=== PATIENT | female | born 1930 | race Caucasian/White ===

== ENCOUNTER 2016-11-22 16:09 | Outpatient (CLI) | payer MEDICARE, OTHER | END 2016-11-22 16:10 | disposition home or self-care (01) | DX: R53.83 Other fatigue (principal); M81.0 Age-related osteoporosis without current pathological fracture ==

== ENCOUNTER 2017-02-10 06:32 | Outpatient (CLI) | payer MEDICARE, OTHER | END 2017-02-10 06:33 | disposition home or self-care (01) | DX: M54.89 Other dorsalgia (principal) ==

== ENCOUNTER 2017-02-18 14:15 | Outpatient (CLI) | payer MEDICARE, OTHER | END 2017-02-18 14:16 | disposition home or self-care (01) | DX: R35.0 Frequency of micturition (principal) ==

== ENCOUNTER 2017-04-15 13:14 | Outpatient (CLI) | payer MEDICARE, OTHER | END 2017-04-15 13:15 | disposition critical access hospital (66) | LOC: EMS 13:14 | PROVIDERS: ATTEND Surgery | DX: T43.291A Poisoning by other antidepressants, accidental (unintentional), initial encounter (principal) | CPT/HCPCS: A0425; A0427 ==

== ENCOUNTER 2017-04-15 13:32 | Observation (INO) | payer MEDICARE, OTHER ==
[2017-04-15] MEDS ORDERED: SODIUM CHLORIDE 0.9% 1,000 ML IV ONE (13:57)
--- NOTE | 2017-04-15 14:12 | ED Physician Documentation ---
PD HPI OVERDOSE - Stated complaint Stated Complaint: MEDICATION INGESTION - Chief complaint Chief Complaint: General - History obtained from History obtained from: Patient - History of Present Illness Timing - onset: How many hours ago (2) Subtance(s) ingested: Single (5 150mg tabs of wellbutrin XL) Associated symptoms: No: Cardiac arrest, Resp depression, Resp arrest, Unresponsive, Decreased responsiveness, Altered mental status, Agitated, Combative, Hallucinations, Chest pain, Abdominal pain, Palpitations, Dyspnea, Diaphoresis, NVD Contributing factors: Accidental. No: Depresssed, Suicidal, Alchoholic, IVDA Pain level max: 0 Pain level now: 0 Similar symptoms before: Has not had sx before Recently seen: Not recently seen Review of Systems Ten Systems: 10 systems reviewed and negative Constitutional: denies: Fever, Chills Nose: denies: Rhinorrhea / runny nose, Congestion Throat: denies: Sore throat Cardiac: denies: Chest pain / pressure Respiratory: denies: Cough GI: denies: Abdominal Pain, Nausea, Vomiting, Diarrhea Skin: denies: Rash Musculoskeletal: denies: Neck pain, Back pain Neurologic: denies: Focal weakness, Numbness, Headache PD PAST MEDICAL HISTORY - Past Medical History Cardiovascular: High cholesterol, Atrial fibrillation Respiratory: None Endocrine/Autoimmune: None GI: Diverticulitis : None Psych: Depression Musculoskeletal: Osteoporosis Derm: None - Past Surgical History Past Surgical History: Yes 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, 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 Cardiovascular: Vascular surgery HEENT: Cataracts - Present Medications Home Medications: Ambulatory Orders Medication Instructions Recorded Confirmed Aspirin [Aspir-Low] 81 mg PO QPM 02/18/16 04/15/17 Bupropion HCl [Bupropion Xl] 150 mg PO DAILY 04/15/17 04/15/17 Prednisone 50 mg PO DAILY 04/15/17 04/15/17 Zolpidem Tartrate [Ambien] 5 - 10 mg PO QPM PRN 04/15/17 04/15/17 - Allergies Allergies/Adverse Reactions: Allergies Allergy/AdvReac Type Severity Reaction Status Date / Time levofloxacin [From Levaquin] AdvReac Severe Nausea, Verified 04/15/17 14:56 Vomiting, and weakness lovastatin AdvReac Severe Insomnia Verified 04/15/17 14:56 ciprofloxacin [From Cipro] AdvReac Intermediate Muscle Verified 04/15/17 14:56 stiffness and pain ciprofloxacin HCl * AdvReac Intermediate Muscle Verified 04/15/17 14:56 [From Cipro] stiffness and pain [id number]-[id number]-Mzs Reductase AdvReac Intermediate Insomnia Verified 04/15/17 14:56 Inhibitor - Social History Does the pt smoke?: No Smoking Status: Never smoker Does the pt drink ETOH?: Yes Does the pt have substance abuse?: No - Immunizations Immunizations are current?: Yes - POLST Patient has POLST: Yes PD ED PE NORMAL - Vitals Vital signs reviewed: Yes - General General: Alert and oriented X 3, No acute distress, Well developed/nourished - HEENT HEENT: PERRL, Moist mucous membranes - Neck Neck: Supple, no meningeal sign - Cardiac Cardiac: RRR, Strong equal pulses - Respiratory Respiratory: No respiratory distress, Clear bilaterally - Abdomen Abdomen: Soft, Non tender, Non distended - Derm Derm: Warm and dry, Other (diffuse rash, being treated with prednisone by dermatology.) - Extremities Extremities: No deformity - Neuro Neuro: Alert and oriented X 3, slp 2-12 intact, No motor deficit, No sensory deficit, Normal speech - Psych Psych: Normal mood, Normal affect Results - Vitals Vitals: Vital Signs - 24 hr 04/15/17 04/15/17 13:34 14:43 Temperature 37.1 C Heart Rate 94 85 Respiratory 16 16 Rate Blood Pressure 182/74 H 171/70 H O2 Saturation 98 98 Oxygen O2 Source Room air - EKG (time done) 1416 Rate: Rate (enter#) (83) Rhythm: NSR, Other (PVC) [place]: Normal Intervals: Normal ID QRS: Normal Ischemia: Normal ST segments - Labs Labs: Laboratory Tests 04/15/17 04/15/17 04/15/17 13:57 14:20 14:20 WBC 5.8 RBC 4.32 Hgb 14.2 Hct 42.3 MCV 97.9 MCH 32.9 H MCHC 33.6 RDW 13.3 Plt Count 216 MPV 8.2 Neut # 4.8 Lymph # 0.7 L [place] # 0.2 Eos # 0.0 Baso # 0.0 Absolute Nucleated RBC 0.00 Nucleated RBCs 0.0 Sodium 136 Potassium 4.4 Chloride 101 Carbon Dioxide 25 Anion Gap 10.0 BUN 25 H Creatinine 0.9 Estimated GFR (MDRD) 60 L Glucose 129 H Calcium 9.5 Total Bilirubin 0.6 AST 23 ALT 18 Alkaline Phosphatase 48 Total Protein 6.9 Albumin 3.8 Globulin 3.1 Albumin/Globulin Ratio 1.2 Lipase 29 Salicylates < 6.0 Urine Opiates Screen NEGATIVE Ur Oxycodone Screen NEGATIVE Urine Methadone Screen NEGATIVE Ur Propoxyphene Screen NEGATIVE Acetaminophen < 10 L Ur Barbiturates Screen NEGATIVE Ur Tricyclics Screen NEGATIVE Ur Phencyclidine Scrn NEGATIVE Ur Amphetamine Screen NEGATIVE U Methamphetamines Scrn NEGATIVE U Benzodiazepines Scrn NEGATIVE Urine Cocaine Screen NEGATIVE U Cannabinoids Screen NEGATIVE Ethyl Alcohol < 5.0 PD MEDICAL DECISION MAKING - ED course Complexity details: reviewed results, re-evaluated patient, considered differential, d/w patient, d/w family, d/w mgmt consultant ED course: Discussed with poison control and recommends observation in the hospital for 18- 24 hours. Monitoring of cardiac, electrolytes and neuro status. D/w Dr. Kirkland, hospitalist who accepts. This document was made in part using voice recognition software. While efforts are made to proofread this document, sound alike and grammatical errors may occur. Departure - Departure Disposition: ED Place in Observation Clinical Impression: Accidental overdose Qualifiers: Encounter type: initial encounter Qualified Code(s): T50.901A - Poisoning by unspecified drugs, medicaments and biological substances, accidental ( unintentional), initial encounter Condition: Good Discharge Date/Time: 04/15/17 16:11
[2017-04-15 14:30] LABS: BASOPHILS % (AUTO) 0.4 %; EOSINOPHILS % (AUTO) 0.7 %; HCT - HEMATOCRIT 42.3 % (37.0-47.0); HGB - HEMOGLOBIN 14.2 g/dL (12.0-16.0); LYMPHOCYTES # (AUTO) 0.7 10^3/uL (1.5-3.5); LYMPHOCYTES % (AUTO) 12.3 %; MEAN CORPUSCULAR HEMOGLOBIN 32.9 pg (27.0-31.0); MEAN CORPUSCULAR HGB CONC 33.6 g/dL (32.0-36.0); MEAN CORPUSCULAR VOLUME 97.9 fL (81.0-99.0); MEAN PLATELET VOLUME 8.2 fL (7.9-10.8); MONOCYTES # (AUTO) 0.2 10^3/uL (0.0-1.0); MONOCYTES % (AUTO) 3.3 %; NEUTROPHILS # (AUTO) 4.8 10^3/uL (1.5-6.6); NEUTROPHILS % (AUTO) 83.3 %; RED BLOOD COUNT 4.32 10^6/uL (4.20-5.40); RED CELL DISTRIBUTION WIDTH 13.3 % (12.0-15.0); UNCORRECTED WHITE BLOOD COUNT 5.8 x10^3/uL; WHITE BLOOD COUNT 5.8 x10^3/uL (4.8-10.8)
[2017-04-15 14:47] LABS: ALBUMIN/GLOBULIN RATIO 1.2 (1.0-2.2); BILIRUBIN,TOTAL 0.6 mg/dL (0.2-1.0); BUN - BLOOD UREA NITROGEN 25 mg/dL (6-20); CALCIUM 9.5 mg/dL (8.5-10.3); CARBON DIOXIDE - CO2 25 mmol/L (21-32); CHLORIDE 101 mmol/L (101-111); CREATININE 0.9 mg/dL (0.4-1.0); GFR - MDRD 60 (>89); GLUCOSE 129 mg/dL (70-100); LIPASE 29 U/L (22-51); POTASSIUM 4.4 mmol/L (3.5-5.0); SALICYLATE < 6.0 mg/dL; SODIUM 136 mmol/L (135-145); TOTAL PROTEIN 6.9 g/dL (6.7-8.2)
[2017-04-15 14:48] LABS: ACETAMINOPHEN < 10 ug/mL (10-30)
[2017-04-15] MEDS ORDERED: HYDROcod/ACETAM 5/325 MG TABLET PO PRN (14:50)
[2017-04-15] MEDS ORDERED: SODIUM CHLORIDE FLUSH 0.9% 10 ML SYRINGE IVP PRN (14:50)
[2017-04-15] MEDS ORDERED: ACETAMINOPHEN 325 MG TABLET PO PRN (14:50)
[2017-04-15] MEDS: SODIUM CHLORIDE 0.9% 1,000 ML IV SCH (16:59)
--- NOTE | 2017-04-15 18:12 | HISTORY & PHYSICAL EXAMINATION ---
DATE OF ADMISSION: 04/15/2017 PRIMARY CARE PHYSICIAN: Delmy Marques P.A.-C CHIEF COMPLAINT: Inadvertent overdose. IDENTIFYING INFORMATION: The patient is the primary source of history. She appears cogent, consistent, and thorough. The patient's history is supplemented by the handoff from the Emergency Department Physician, Donell Rivas M.D. There was also personal review of the past medical records and the data collected during this visit. The patient's examination was also used in the evaluation and preparation of this document. HISTORY OF PRESENT ILLNESS: The patient went to the tip bander yesterday and was instructed to take five 10 mg prednisone daily for the rash. The patient started those pills today. However, she chose the Wellbutrin-XL 150 mg instead of the prednisone and did not realize her mistake until after she ingested the pills. The patient is asymptomatic. However, she got concerned and called Poison Control, who told her to call 911, come to the hospital, and be evaluated in the emergency department. The patient says she feels perfectly fine. REVIEW OF SYSTEMS: A complete review of systems is negative as queried. Specifically, the patient has had no nausea, vomiting, or diarrhea. She has had no chest pain, no hallucinations, and no cardiac or pulmonary symptoms as well. PAST MEDICAL HISTORY: The patient's past medical history is remarkable for high cholesterol, atrial fibrillation, diverticulitis, depression, and osteoporosis. She has had colon and also breast cancer. PAST SURGICAL HISTORY: Past surgeries are hysterectomy, mastectomy, vascular surgery, and cataracts. ALLERGIES: NONE KNOWN. MEDICATIONS Her medications are: 1. Aspirin 81 mg a day. 2. Bupropion XL 150 mg a day. 3. Prednisone 50 mg a day. PERSONAL AND SOCIAL HISTORY: She was born and raised in [place] and then moved to [place]. She says, "I was an illegal alien for [employer]." She came to [facility] in [address]. She had to go back to [place] for a day so that she could come in and get her green card. 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 The patient has a son and two daughters. None live in the area. The patient's is disabled. The patient has never been a smoker. She drinks alcohol occasionally. No other substance abuse history. FAMILY HISTORY: The patient's family history is negative for diabetes. Positive for cardiac disease. Father at 71 from a myocardial infarction. There is also cancer in the family. She does not know the type, except her own. PHYSICAL EXAMINATION GENERAL APPEARANCE: On the patient's examination, she appears her stated age, well developed and well nourished. No acute distress. VITAL SIGNS: The patient's vital signs are 37.1, 94, 16, 182/74, and O2 saturation 98% on room air. EYES: Extraocular movements are within normal limits. PERRL. Nonicteric. MOUTH AND THROAT: Moist mucous membranes. No pathology noted in the mouth or pharynx. NECK: No lymphadenopathy. No thyromegaly. No JVD. No bruits. CHEST WALL: Nontender and symmetric, except that she has had mastectomy. There is no breast exam done. HEART: The patient's heart is an irregularly irregular rhythm. No murmur, rubs , or clicks heard. LUNGS: Clear. Good air movement bilaterally. No increased respiratory work. ABDOMEN: Soft and nontender. Normal bowel sounds. No hepatosplenomegaly. EXTREMITIES: With 1+ pulses distally. VASCULAR EXAM: No cyanosis. Normal capillary refill. NEUROLOGICAL: Cranial nerves are intact. Motor intact. Sensory intact. Cognition intact. The patient's gait is not tested. SKIN: She has lesions which appear to be papular with a red base on the arms, legs, trunk, and back. LABORATORY DATA: The patient has a white count of 5.8, 14 and 42 hemoglobin and hematocrit, and platelets 216. Sodium 136, potassium 4.4, chloride 101, CO2 was 25, BUN was 25, creatinine was 0.9, and the glucose was 129. Normal liver enzymes, and albumin was 3.8. Salicylate was less than 6. Acetaminophen was less than 10. Ethyl alcohol was less than 5. The patient's EKG showed a first degree heart block without Q-waves or ST-T wave changes that are significant. The patient also has ventricular premature complexes and borderline left axis deviation. She has a wide P-wave in the inferior leads. SUMMARY: This is an 87-year-old woman who took and inadvertent overdose of Wellbutrin and needs to be monitored for life-threatening sequela of this ingestion, namely respiratory depression, cardiac arrest, hallucinations, and electrolyte disturbances. IMPRESSION 1. Overdose on Wellbutrin. 2. Atrial fibrillation: rate controlled , not on Anticoagulation. 3. Depression. 4. Hypercholesterolemia. DISCUSSION/DECISION MAKING 1. She will be given ample IV fluids and monitored. Repeat laboratory. 2. Atrial fibrillation, rate controlled: No further treatment at this time. 3. Depression: Wellbutrin will be held due to the toxicity for 3 to 5 days. 4. Hypercholesterolemia: Will not be treated at this time as she is on no outpatient therapy. HOSPITAL ISSUES 1. She is a NO CODE. 2. Venous thromboembolism prophylaxis will be Lovenox. 3. Diet will be a regular diet. 4. Activity will be up ad letha. 5. Tubes and lines: Will be just her peripheral IV at this time. 6. Hospital status: Observation. It is expected the patient will clear the toxicity in less than 48 hours and only spend one night in the hospital. 7. Expected length of stay: One night. 8. Disposition: Expected to be to home. JOB #: [id number] EXT JOB #:[id number] JONAS
[2017-04-15] MEDS ORDERED: ASPIRIN EC 81 MG TABLET PO SCH (21:00)
[2017-04-15] MEDS: SODIUM CHLORIDE FLUSH 0.9% 10 ML SYRINGE IVP SCH (21:40)
[2017-04-16] MEDS: SODIUM CHLORIDE 0.9% 1,000 ML IV SCH (03:12)
[2017-04-16] MEDS: SODIUM CHLORIDE FLUSH 0.9% 10 ML SYRINGE IVP SCH (04:49)
[2017-04-16 05:58] LABS: BASOPHILS % (AUTO) 0.5 %; EOSINOPHILS # (AUTO) 0.2 10^3/uL (0.0-0.7); HCT - HEMATOCRIT 40.1 % (37.0-47.0); HGB - HEMOGLOBIN 13.4 g/dL (12.0-16.0); LYMPHOCYTES # (AUTO) 1.6 10^3/uL (1.5-3.5); LYMPHOCYTES % (AUTO) 20.8 %; MEAN CORPUSCULAR HEMOGLOBIN 33.1 pg (27.0-31.0); MEAN CORPUSCULAR HGB CONC 33.3 g/dL (32.0-36.0); MEAN CORPUSCULAR VOLUME 99.4 fL (81.0-99.0); MEAN PLATELET VOLUME 8.5 fL (7.9-10.8); MONOCYTES % (AUTO) 13.2 %; NEUTROPHILS # (AUTO) 4.9 10^3/uL (1.5-6.6); NEUTROPHILS % (AUTO) 63.5 %; NUCLEATED RED BLOOD CELLS AUTO 0.1 /100WBC; RED BLOOD COUNT 4.04 10^6/uL (4.20-5.40); RED CELL DISTRIBUTION WIDTH 13.4 % (12.0-15.0); UNCORRECTED WHITE BLOOD COUNT 7.7 x10^3/uL; WHITE BLOOD COUNT 7.7 x10^3/uL (4.8-10.8)
[2017-04-16 06:09] LABS: ALBUMIN/GLOBULIN RATIO 1.2 (1.0-2.2); BILIRUBIN,TOTAL 0.6 mg/dL (0.2-1.0); CALCIUM 9.2 mg/dL (8.5-10.3); CREATININE 0.8 mg/dL (0.4-1.0); POTASSIUM 3.8 mmol/L (3.5-5.0); TOTAL PROTEIN 6.1 g/dL (6.7-8.2)
--- NOTE | 2017-04-16 07:28 | Discharge Plan ---
Discharge Plan Disposition: 01 Home, Self Care Condition: Good Diet: Regular Activity Restrictions: Activity as Tolerated Shower Restrictions: No Driving Restrictions: No Weight Bearing: Full Weight Additional Instructions or Follow Up instructions: Do not restart your Wellbutrin until Tuesday am. Follow up with your PCP in the next 1-2 weeks. Thank you, Dr. Kirkland No Smoking: If you smoke, Please STOP! Call for help. Follow-up with: Delmy Marques PA-C [Primary Care Provider] - 2 Weeks
[2017-04-16 07:56] VITALS: BP 129/67
[2017-04-16] MEDS ORDERED: predniSONE 20 MG TABLET PO SCH (08:00)
[2017-04-16] MEDS ORDERED: ENOXAPARIN 40 MG/0.4 ML SYRINGE SUBQ SCH (09:00)
[2017-04-16] MEDS ORDERED: POLYETHYLENE GLYCOL 3350 17 GM PACKET PO SCH (09:00)
--- NOTE | 2017-04-18 07:10 | DISCHARGE SUMMARY ---
DATE OF ADMISSION: 04/15/2017 DATE OF DISCHARGE: 04/16/2017 PRIMARY CARE PHYSICIAN: Delmy Marques PA-C ADMISSION DIAGNOSES 1. Overdose on Wellbutrin, inadvertent. 2. Atrial fibrillation, no anticoagulation. 3. Depression. 4. Hypercholesterolemia. DISCHARGE DIAGNOSES 1. Overdose on Wellbutrin without any sequelae. 2. Atrial fibrillation, rate controlled without anticoagulation. 3. Depression. 4. Hypercholesterolemia without medication. CONSULTATIONS: None. SPECIAL PROCEDURES: None. HOSPITAL COURSE AND MANAGEMENT: The initial presentation, hospital emergency evaluation, and hospital list plan are well described in the History and Physical, see copy of same. SUMMARY: This is an 87-year-old woman who took her an inadvertent overdose of Wellbutrin and needs to be monitored for life-threatening sequelae of this ingestion. This is specifically respiratory depre ssion, cardiac arrest, hallucinations, electrolyte disturbances. The patient had no significant adverse or detrimental consequences. The patient was monitored overnig ht without any cardiac disturbances. The patient's blood pressure was elevated initially, it was in a cceptable range in the morning before discharge at 148/71. The patient's a.m. labs were normal, to be noted subsequently. PHYSICAL EXAMINATION GENERAL: Elderly female in no acute distress. Well-developed, well-nourished. VITAL SIGNS: 36.9, 85, 148/71, 16, 97% room air saturation. EYES: EOM within normal limits. PERRL, nonicteric. MOUTH AND THROAT: Moist mucous membranes. No other pathology. NECK: Supple. Nontender. No lymphadenopathy. No thyromegaly. No JVD, no bruits. CHEST WALL: Nontender. Asymmetry secondary to right mastectomy. HEART: Irregular rhythm, a systolic murmur left sternal border noted. LUNGS: Clear, good air movement. ABDOMEN: Soft, nontender, normal bowel sounds. No hepatosplenomegaly. VASCULAR: She has some palpable pulses posterior tibial bilateral. No cyanosis. Normal capillary refi ll. NEUROLOGIC: Cranial nerves intact as tested. Motor normal. Sensory normal. SKIN: She has a diffuse dermatitis which has been diagnosed as allergic dermatitis and she is on pred nisone. LABORATORY DATA: She has a white count of 7.7, 13 and 40 hemoglobin and hematocrit, platelets are 214 . Sodium 143, potassium 3.8, chloride 110, CO2 of 24, BUN 22, creatinine 0.8, glucose 115, calcium 9. 2. Albumin 3.3. DISCHARGE DISPOSITION: The patient is discharged home on her usual medications. DISCHARGE MEDICATIONS 1. Aspirin 81 mg a day. 2. Zolpidem 5-10 mg at bedtime. 3. Bupropion 150 mg daily, which she is not to restart until Tuesday given the overdose residual. 4. Prednisone 50 mg p.o. daily in a taper as directed by her child care sitter. FOLLOWUP: The patient is to follow up with Delmy Marques in the next 1-2 weeks or sooner if needed. TIME SPENT: Less than 30 minutes and the patient is examined on the day of discharge. JOB #: [id number] EXT JOB #:[id number]
== END 2017-04-16 09:26 | disposition home or self-care (01) ==
LOC: EDUNIT# → ED 13:32 → MS 14:50
PROVIDERS: ADMIT Internal Medicine; ATTEND Internal Medicine
DX: T43.291A Poisoning by other antidepressants, accidental (unintentional), initial encounter (principal); R03.0 Elevated blood-pressure reading, without diagnosis of hypertension; I48.91 Unspecified atrial fibrillation; F32.9 Major depressive disorder, single episode, unspecified; E78.00 Pure hypercholesterolemia, unspecified; L23.9 Allergic contact dermatitis, unspecified cause; Z79.82 Long term (current) use of aspirin; Z85.3 Personal history of malignant neoplasm of breast; Z85.038 Personal history of other malignant neoplasm of large intestine; Z66 Do not resuscitate
CPT/HCPCS: 36415; 80053; 80306; 80307; 83690; 85025; 93005; 96360; 96361; 99284; 99285; A9270; G0378; G0480; 80320; 80329

== ENCOUNTER 2017-06-28 08:17 | Outpatient (CLI) | payer MEDICARE, OTHER ==
[2017-06-28 21:07] LABS: BILIRUBIN,URINE NEGATIVE (NEGATIVE); PH,URINE 6.5 PH (5.0-7.5)
== END 2017-06-28 08:18 | disposition home or self-care (01) ==
LOC: LAB.WCP 08:17
PROVIDERS: ATTEND Physician Assistant Medical
DX: R30.0 Dysuria (principal)
CPT/HCPCS: 81001; 87086

== ENCOUNTER 2017-09-20 10:45 | Outpatient (CLI) | payer MEDICARE, OTHER | END 2017-09-20 10:46 | LOC: LAB.WCP 10:45 | PROVIDERS: ATTEND Physician Assistant Medical | DX: R30.0 Dysuria (principal) | CPT/HCPCS: 87086 ==

== ENCOUNTER 2017-09-26 08:00 | Outpatient (CLI) | payer MEDICARE, OTHER | END 2017-09-26 23:59 | disposition home or self-care (01) | LOC: LAB.R 08:00 | PROVIDERS: ATTEND Physician Assistant Medical | DX: R30.9 Painful micturition, unspecified (principal) | CPT/HCPCS: 87086 ==

== ENCOUNTER 2017-11-09 08:00 | Outpatient (CLI) | payer MEDICARE, OTHER | END 2017-11-09 23:59 | disposition home or self-care (01) | LOC: LAB.R 08:00 | PROVIDERS: ATTEND Physician Assistant Medical | DX: N39.0 Urinary tract infection, site not specified (principal) | CPT/HCPCS: 87086 ==

== ENCOUNTER 2017-11-14 16:30 | Outpatient (CLI) | payer MEDICARE, OTHER | END 2017-11-14 16:31 | disposition home or self-care (01) | LOC: LAB.R 16:30 | PROVIDERS: ATTEND Physician Assistant Medical | DX: N39.0 Urinary tract infection, site not specified (principal) | CPT/HCPCS: 87086 ==

== ENCOUNTER 2018-05-19 08:00 | Outpatient (CLI) | payer MEDICARE, OTHER ==
[2018-05-19 13:00] LABS: BASOPHILS # (AUTO) 0.1 10^3/uL (0.0-0.1); BASOPHILS % (AUTO) 1.3 %; EOSINOPHILS # (AUTO) 0.5 10^3/uL (0.0-0.7); EOSINOPHILS % (AUTO) 7.8 %; HGB - HEMOGLOBIN 13.8 g/dL (12.0-16.0); LYMPHOCYTES # (AUTO) 2.2 10^3/uL (1.5-3.5); LYMPHOCYTES % (AUTO) 32.7 %; MEAN CORPUSCULAR HEMOGLOBIN 33.7 pg (27.0-31.0); MEAN CORPUSCULAR HGB CONC 33.8 g/dL (32.0-36.0); MEAN CORPUSCULAR VOLUME 99.7 fL (81.0-99.0); MEAN PLATELET VOLUME 8.7 fL (7.9-10.8); MONOCYTES # (AUTO) 0.7 10^3/uL (0.0-1.0); MONOCYTES % (AUTO) 10.2 %; NEUTROPHILS # (AUTO) 3.2 10^3/uL (1.5-6.6); PLT - PLATELET COUNT 277 10^3/uL (130-450); RED BLOOD COUNT 4.11 10^6/uL (4.20-5.40); RED CELL DISTRIBUTION WIDTH 14.1 % (12.0-15.0); WHITE BLOOD COUNT 6.7 x10^3/uL (4.8-10.8)
[2018-05-19 13:22] LABS: THYROID STIMULATING HORMONE 7.55 uIU/mL (0.34-5.60)
[2018-05-19 13:23] LABS: ALBUMIN 3.3 g/dL (3.2-5.5); ALBUMIN/GLOBULIN RATIO 1.1 (1.0-2.2); ALKALINE PHOSPHATASE 41 IU/L (42-121); ALT ALANINE AMINOTRANSFERASE 14 IU/L (10-60); AST ASPARTATE AMINOTRANSFERASE 19 IU/L (10-42); BILIRUBIN,TOTAL 0.7 mg/dL (0.2-1.0); BUN - BLOOD UREA NITROGEN 21 mg/dL (6-20); CALCIUM 9.2 mg/dL (8.5-10.3); CARBON DIOXIDE - CO2 27 mmol/L (21-32); CHLORIDE 106 mmol/L (101-111); CHOL/HDL RATIO 3.4 (<4.4); CHOLESTEROL 220 mg/dL; CREATININE 0.8 mg/dL (0.4-1.0); GFR - MDRD 68 (>89); GLUCOSE 103 mg/dL (70-100); HDL CHOLESTEROL 65 mg/dL; LDL CHOLESTEROL,CALCULATED 143 mg/dL; LDL/HDL RATIO 2.2 (<4.4); SODIUM 140 mmol/L (135-145); TOTAL PROTEIN 6.4 g/dL (6.7-8.2); VLDL CHOLESTEROL 12 mg/dL
[2018-05-19 14:24] LABS: RBC MORPHOLOGY (MULTIPLE) 2+ ANISOCYTOSIS (NORMAL)
[2018-05-19 15:04] LABS: FREE T4 (FREE THYROXINE) 0.96 ng/dL (0.58-1.64)
== END 2018-05-19 08:01 | disposition home or self-care (01) ==
LOC: LAB.WCP 08:00
PROVIDERS: ATTEND Family Medicine
DX: I48.91 Unspecified atrial fibrillation (principal); I10 Essential (primary) hypertension; E78.5 Hyperlipidemia, unspecified
CPT/HCPCS: 36415; 80053; 80061; 83721; 84439; 84443; 85025

== ENCOUNTER 2018-06-16 12:11 | Outpatient (CLI) | payer MEDICARE, OTHER ==
--- NOTE | 2018-06-17 01:26 | CARDIAC PROCEDURE NOTE ---
DATE OF SERVICE: 06/16/2018 Physician: Micki Clark MD INDICATION FOR STRESS TEST: Dyspnea on exertion. TYPE OF TEST: Exercise treadmill test. RESTING EKG: Normal sinus rhythm with occasional PACs, left atrial enlargement , poor R-wave progression. Resting heart rate 88, peak heart rate 112 (83.5% predicted maximal heart rate for age). Resting blood pressure 138/70, peak blood pressure 195/55. SUMMARY: The patient underwent a Modified Uday, 3-min stage, treadmill protocol stress test. The patient exercised for 5 minutes, 38 seconds. She achieved a peak heart rate of 112 (83.5% PMHR), 3.5 METS. The patient developed moderate shortness of breath and fatigue and "sweating." Shortness of breath resolved within 1-2 minutes of recovery. The patient had no chest pain. EKG showed rare PACs with exercise and new PVCs with exercise EKG AT PEAK: no ischemic ST segment changes. IMPRESSION 1. Fair exercise tolerance. 2. Normal HR and BP response to exercise. 3. Borderline adequate stress by criteria, she did not achieve greater than 7 METS, she did not achieve 85% predicated heart rate for age. 4. No EKG changes for ischemia at this suboptimal peak heart rate. 5. Consider rechecking with a pharmaceutical, nonwalking, nuclear stress test. CC: ORDERING PROVIDER: Delmy Marques PA-C. TD: 06/16/2018 17:11 MTDD
== END 2018-06-16 12:12 | disposition home or self-care (01) ==
LOC: DI 12:11
PROVIDERS: ATTEND Physician Assistant Medical
DX: R06.09 Other forms of dyspnea (principal)
CPT/HCPCS: 93017

== ENCOUNTER 2018-06-20 14:05 | Outpatient (CLI) | payer MEDICARE, OTHER | END 2018-06-20 14:06 | LOC: LAB.WCP 14:05 | PROVIDERS: ATTEND Physician Assistant Medical | DX: E03.9 Hypothyroidism, unspecified (principal) | CPT/HCPCS: 36415; 84443 ==

== ENCOUNTER 2018-08-18 12:48 | Outpatient (CLI) | payer MEDICARE, OTHER ==
--- NOTE | 2018-08-19 10:11 | Ultrasound Report ---
Reason: DIZZINESS Procedure Date: 08/18/2018 Accession Number: [id number] / [id number] Procedure: US - Carotid Doppler Complete CPT Code: FULL RESULT: EXAM: BILATERAL CAROTID AND VERTEBRAL ARTERY DUPLEX DOPPLER ULTRASOUND: EXAM DATE: 08/18/2018 02:14 PM CLINICAL HISTORY: Dizziness. COMPARISON: None. TECHNIQUE: Grayscale imaging, color Doppler, and duplex spectral Doppler were used to evaluate the carotid and vertebral arteries bilaterally. Static images were obtained. FINDINGS: No significant plaque is identified in the right common or internal carotid arteries. There is a short segment of moderate calcified plaque at the left carotid bulb. Normal antegrade flow is present in bilateral vertebral arteries. VELOCITIES (cm/sec): Right CCA mid: PSV 116.3 cm/sec CCA dist: PSV 92.5 cm/sec ICA prox: PSV 75.6 cm/sec, EDV 16.7 cm/sec ICA mid: PSV 92.8 cm/sec, EDV 27.2 cm/sec ICA dist: PSV 88.4 cm/sec, EDV 23.4 cm/sec ECA: PSV 108.0 cm/sec Vert: PSV 23.4 cm/sec ICA/CCA: 0.80 Left CCA mid: PSV 57.8 cm/sec CCA dist: PSV 92.1 cm/sec ICA prox: PSV 106.2 cm/sec, EDV 11.5 cm/sec ICA mid: PSV 116.0 cm/sec, EDV 26.6 cm/sec ICA dist: PSV 109.2 cm/sec, EDV 26.6 cm/sec ECA: PSV 80.1 cm/sec Vert: PSV 51.0 cm/sec ICA/CCA: 1.26 ICA diameter stenosis: Right: <50% by velocity and <70% by NASCET criteria. Left: <50% by velocity and <70% by NASCET criteria. IMPRESSION: 1. No significant right carotid artery plaquing. There is a short segment of moderate calcified plaque at the left carotid bulb. 2. In the right carotid artery there are no elevated carotid artery velocities to suggest hemodynamically significant stenosis. 3. In the left carotid artery there are no elevated carotid artery velocities to suggest hemodynamically significant stenosis. 4. Normal antegrade flow is present in bilateral vertebral arteries. General Recommendations: Stenosis =50% ICA - Follow-up ultrasound 6-12 months Stenosis <50% ICA - High Risk Patient with plaque - Follow-up ultrasound 1-2 years Normal Study but High Risk Patient - Follow-up ultrasound 3-5 years Management recommendations and diagnostic criteria are based on current IAC endorsed standards in Carotid Artery Stenosis: Grayscale and Doppler Ultrasound Diagnosis. Validated velocity measurements with angiographic measurements and velocity criteria are extrapolated from diameter data as defined by the Society of Radiologists in Ultrasound Consensus Conference Radiology 2003; 229;340-346. RADIA
== END 2018-08-18 12:49 | disposition home or self-care (01) ==
LOC: DI 12:48
PROVIDERS: ATTEND Physician Assistant Medical
DX: I65.22 Occlusion and stenosis of left carotid artery (principal); R42 Dizziness and giddiness
CPT/HCPCS: 93880

== ENCOUNTER 2018-09-27 08:00 | Outpatient (CLI) | payer MEDICARE, OTHER ==
[2018-09-27 18:56] LABS: BASOPHILS # (AUTO) 0.1 10^3/uL (0.0-0.1); EOSINOPHILS # (AUTO) 0.1 10^3/uL (0.0-0.7); EOSINOPHILS % (AUTO) 1.6 %; HGB - HEMOGLOBIN 14.8 g/dL (12.0-16.0); LYMPHOCYTES # (AUTO) 1.6 10^3/uL (1.5-3.5); LYMPHOCYTES % (AUTO) 23.1 %; MEAN CORPUSCULAR HEMOGLOBIN 33.3 pg (27.0-31.0); MEAN CORPUSCULAR HGB CONC 32.8 g/dL (32.0-36.0); MEAN CORPUSCULAR VOLUME 101.6 fL (81.0-99.0); MEAN PLATELET VOLUME 8.4 fL (7.9-10.8); MONOCYTES # (AUTO) 0.6 10^3/uL (0.0-1.0); NEUTROPHILS # (AUTO) 4.6 10^3/uL (1.5-6.6); NEUTROPHILS % (AUTO) 65.3 %; PLT - PLATELET COUNT 252 10^3/uL (130-450); RED BLOOD COUNT 4.45 10^6/uL (4.20-5.40); RED CELL DISTRIBUTION WIDTH 13.9 % (12.0-15.0)
[2018-09-27 19:01] LABS: CALCIUM 9.9 mg/dL (8.5-10.3); CREATININE 0.8 mg/dL (0.4-1.0)
== END 2018-09-27 23:59 | disposition home or self-care (01) ==
LOC: LAB.WCP 08:00
PROVIDERS: ATTEND Physician Assistant Medical
DX: R42 Dizziness and giddiness (principal)
CPT/HCPCS: 36415; 80048; 84443; 85025

== ENCOUNTER 2018-10-10 08:00 | Outpatient (CLI) | payer MEDICARE, OTHER ==
[2018-10-10 19:06] LABS: BASOPHILS # (AUTO) 0.1 10^3/uL (0.0-0.1); BASOPHILS % (AUTO) 1.4 %; EOSINOPHILS # (AUTO) 0.2 10^3/uL (0.0-0.7); EOSINOPHILS % (AUTO) 2.1 %; HGB - HEMOGLOBIN 14.7 g/dL (12.0-16.0); LYMPHOCYTES # (AUTO) 1.5 10^3/uL (1.5-3.5); LYMPHOCYTES % (AUTO) 20.1 %; MEAN CORPUSCULAR HEMOGLOBIN 33.3 pg (27.0-31.0); MEAN CORPUSCULAR HGB CONC 33.2 g/dL (32.0-36.0); MEAN CORPUSCULAR VOLUME 100.3 fL (81.0-99.0); MEAN PLATELET VOLUME 8.4 fL (7.9-10.8); MONOCYTES # (AUTO) 0.9 10^3/uL (0.0-1.0); MONOCYTES % (AUTO) 11.3 %; NEUTROPHILS # (AUTO) 4.9 10^3/uL (1.5-6.6); NEUTROPHILS % (AUTO) 65.1 %; PLT - PLATELET COUNT 317 10^3/uL (130-450); RED BLOOD COUNT 4.43 10^6/uL (4.20-5.40); RED CELL DISTRIBUTION WIDTH 13.8 % (12.0-15.0); WHITE BLOOD COUNT 7.6 x10^3/uL (4.8-10.8)
[2018-10-10 19:20] LABS: ALBUMIN/GLOBULIN RATIO 1.3 (1.0-2.2); BILIRUBIN,TOTAL 0.8 mg/dL (0.2-1.0); CALCIUM 9.4 mg/dL (8.5-10.3); CREATININE 0.8 mg/dL (0.4-1.0); TOTAL PROTEIN 7.2 g/dL (6.7-8.2)
== END 2018-10-10 23:59 | disposition home or self-care (01) ==
LOC: LAB.WCP 08:00
PROVIDERS: ATTEND Physician Assistant Medical
DX: R10.32 Left lower quadrant pain (principal)
CPT/HCPCS: 36415; 80053; 83690; 85025

== ENCOUNTER 2018-10-19 11:32 | Outpatient (CLI) | payer MEDICARE, OTHER ==
[2018-10-19 12:05] LABS: BASOPHILS # (AUTO) 0.1 10^3/uL (0.0-0.1); BASOPHILS % (AUTO) 0.9 %; EOSINOPHILS # (AUTO) 0.2 10^3/uL (0.0-0.7); EOSINOPHILS % (AUTO) 2.2 %; HGB - HEMOGLOBIN 14.8 g/dL (12.0-16.0); LYMPHOCYTES # (AUTO) 1.7 10^3/uL (1.5-3.5); LYMPHOCYTES % (AUTO) 20.2 %; MEAN CORPUSCULAR HGB CONC 34.3 g/dL (32.0-36.0); MEAN PLATELET VOLUME 7.8 fL (7.9-10.8); MONOCYTES # (AUTO) 0.8 10^3/uL (0.0-1.0); MONOCYTES % (AUTO) 9.7 %; NEUTROPHILS # (AUTO) 5.5 10^3/uL (1.5-6.6); PLT - PLATELET COUNT 307 10^3/uL (130-450); RED BLOOD COUNT 4.37 10^6/uL (4.20-5.40); RED CELL DISTRIBUTION WIDTH 13.9 % (12.0-15.0); WHITE BLOOD COUNT 8.2 x10^3/uL (4.8-10.8)
[2018-10-19] MEDS ORDERED: IOVERSOL 320 50 ML VIAL ONE (12:13)
[2018-10-19] MEDS ORDERED: IOVERSOL 320 100 ML VIAL IVP ONE ×2 (12:14→13:57)
[2018-10-19 12:22] LABS: ALBUMIN 4.1 g/dL (3.2-5.5); ALBUMIN/GLOBULIN RATIO 1.4 (1.0-2.2); BILIRUBIN,TOTAL 0.8 mg/dL (0.2-1.0); CALCIUM 9.6 mg/dL (8.5-10.3)
[2018-10-19] MEDS ORDERED: IOVERSOL 320 50 ML VIAL PO ONE (13:53)
--- NOTE | 2018-10-19 14:33 | CT Report ---
Reason: ABDOMINAL PAIN, LEFT LOWER QUADRANT Procedure Date: 10/19/2018 Accession Number: [id number] / [id number] Procedure: CT - Abdomen/Pelvis W/ CPT Code: FULL RESULT: EXAM: CT ABDOMEN AND PELVIS EXAM DATE: 10/19/2018 01:43 PM. CLINICAL HISTORY: Abdominal pain, left lower quadrant. COMPARISONS: Chest 2 view PA and lateral 05/23/2018 1:35 PM. TECHNIQUE: Routine helical CT imaging was performed through the abdomen and pelvis. IV contrast: Optiray-320 100 mL. Enteric contrast: Yes. Reconstructions: Coronal and sagittal. In accordance with CT protocol optimization, one or more of the following dose reduction techniques were utilized for this exam: automated exposure control, adjustment of mA and/or KV based on patient size, or use of iterative reconstructive technique. FINDINGS: Lung Bases: Unremarkable. Liver: Normal. No masses. Gallbladder/Bile Ducts: Unremarkable. Spleen: Normal. Pancreas: Normal. Adrenal Glands: Normal. Kidneys: Normal. No masses or hydronephrosis. Peritoneal Cavity/Bowel: There is extensive diverticulosis without definite evidence of diverticulitis at the time of CT examination. No free fluid, free air or adenopathy. No masses or acute inflammatory process. Pelvic Organs: Normal. The bladder and visualized pelvic organs are within normal limits. Vasculature: Marked atherosclerosis. Bones: Moderate to severe dextroconvex lumbar scoliosis centered about L3. Other: None. IMPRESSION: Extensive diverticulosis. No definite diverticulitis at the time of CT exam. RADIA
== END 2018-10-19 11:33 | disposition home or self-care (01) ==
LOC: LAB 11:32 → DI 11:33
PROVIDERS: ATTEND Physician Assistant Medical
DX: K57.30 Diverticulosis of large intestine without perforation or abscess without bleeding (principal); R10.32 Left lower quadrant pain
CPT/HCPCS: 36415; 74177; 80053; 85025; Q9967

== ENCOUNTER 2018-10-26 10:06 | Outpatient (CLI) | payer MEDICARE, OTHER | END 2018-10-26 23:59 | disposition home or self-care (01) | LOC: LAB.WCP 10:06 | PROVIDERS: ATTEND Physician Assistant Medical | DX: R10.32 Left lower quadrant pain (principal) | CPT/HCPCS: 36415; 82378; 86301; 86304 ==

== ENCOUNTER 2019-02-05 08:00 | Outpatient (CLI) | payer MEDICARE, OTHER | END 2019-02-05 23:59 | disposition home or self-care (01) | LOC: LAB.R 08:00 | PROVIDERS: ATTEND Physician Assistant | DX: R35.0 Frequency of micturition (principal) | CPT/HCPCS: 87086; 87181 ==

== ENCOUNTER 2019-07-11 12:41 | Day surgery (SDC) | payer MEDICARE, OTHER ==
[2019-07-11] MEDS ORDERED: MIDAZOLAM 2 MG/2 ML VIAL IVP ONE (12:42)
[2019-07-11] MEDS ORDERED: fentaNYL 250 MCG/5 ML VIAL IVP ONE (12:42)
[2019-07-11] MEDS ORDERED: LACTATED RINGERS 1,000 ML IV ONE (13:20)
[2019-07-11 15:46] VITALS: BP 120/63
== END 2019-07-11 12:42 | disposition home or self-care (01) ==
LOC: SDS 12:41
PROVIDERS: ATTEND Internal Medicine
PROC: 0DB68ZX Excision of Stomach, Via Natural or Artificial Opening Endoscopic, Diagnostic (ICD-10-PCS; principal; 2019-07-11 14:00)
DX: R10.13 Epigastric pain (principal); R63.4 Abnormal weight loss
CPT/HCPCS: 43239; J7120

== ENCOUNTER 2019-08-15 12:45 | Outpatient (CLI) | payer MEDICARE, OTHER | END 2019-08-15 12:46 | disposition home or self-care (01) | LOC: NS 12:45 | PROVIDERS: ATTEND Physician Assistant Medical | DX: Z71.3 Dietary counseling and surveillance (principal); R68.81 Early satiety; K21.9 Gastro-esophageal reflux disease without esophagitis; E21.0 Primary hyperparathyroidism | CPT/HCPCS: 97802 ==

== ENCOUNTER 2019-09-03 08:00 | Outpatient (CLI) | payer MEDICARE, OTHER ==
[2019-09-03 11:48] LABS: BASOPHILS # (AUTO) 0.1 10^3/uL (0.0-0.1); BASOPHILS % (AUTO) 0.9 %; EOSINOPHILS # (AUTO) 0.5 10^3/uL (0.0-0.7); EOSINOPHILS % (AUTO) 7.8 %; HGB - HEMOGLOBIN 14.2 g/dL (12.0-16.0); LYMPHOCYTES # (AUTO) 2.3 10^3/uL (1.5-3.5); LYMPHOCYTES % (AUTO) 34.1 %; MEAN CORPUSCULAR HEMOGLOBIN 32.9 pg (27.0-31.0); MEAN CORPUSCULAR HGB CONC 32.1 g/dL (32.0-36.0); MEAN CORPUSCULAR VOLUME 102.5 fL (81.0-99.0); MEAN PLATELET VOLUME 11.1 fL (7.9-10.8); MONOCYTES # (AUTO) 0.8 10^3/uL (0.0-1.0); MONOCYTES % (AUTO) 11.7 %; NEUTROPHILS % (AUTO) 45.1 %; PLT - PLATELET COUNT 245 10^3/uL (130-450); RED BLOOD COUNT 4.32 10^6/uL (4.20-5.40); RED CELL DISTRIBUTION WIDTH 14.1 % (12.0-15.0); WHITE BLOOD COUNT 6.7 x10^3/uL (4.8-10.8)
[2019-09-03 12:24] LABS: ALBUMIN 3.8 g/dL (3.2-5.5); ALBUMIN/GLOBULIN RATIO 1.3 (1.0-2.2); ALKALINE PHOSPHATASE 47 IU/L (42-121); ALT ALANINE AMINOTRANSFERASE 14 IU/L (10-60); AST ASPARTATE AMINOTRANSFERASE 18 IU/L (10-42); BILIRUBIN,TOTAL 0.7 mg/dL (0.2-1.0); BUN - BLOOD UREA NITROGEN 23 mg/dL (6-20); CARBON DIOXIDE - CO2 29 mmol/L (21-32); CHLORIDE 105 mmol/L (101-111); CHOL/HDL RATIO 3.6 (<4.4); CHOLESTEROL 236 mg/dL; CREATININE 0.8 mg/dL (0.4-1.0); GFR - MDRD 68 (>89); GLUCOSE 100 mg/dL (70-100); HDL CHOLESTEROL 65 mg/dL; LDL CHOLESTEROL,CALCULATED 157 mg/dL; LDL/HDL RATIO 2.4 (<4.4); SODIUM 139 mmol/L (135-145); TOTAL PROTEIN 6.7 g/dL (6.7-8.2); VLDL CHOLESTEROL 14 mg/dL
== END 2019-09-03 23:59 | disposition home or self-care (01) ==
LOC: LAB.WCP 08:00
PROVIDERS: ATTEND Physician Assistant Medical
DX: E78.5 Hyperlipidemia, unspecified (principal); E03.9 Hypothyroidism, unspecified; I10 Essential (primary) hypertension
CPT/HCPCS: 36415; 80053; 80061; 83721; 84443; 85025

== ENCOUNTER 2019-11-08 19:16 | Outpatient (CLI) | payer MEDICARE, OTHER ==
--- NOTE | 2019-11-08 21:53 | Ultrasound Report ---
Reason: PAIN IN LT LEG Procedure Date: 11/08/2019 Accession Number: [id number] / [id number] Procedure: US - Duplex Ext Veins Left CPT Code: Final Report FULL RESULT: EXAM: LEFT LOWER EXTREMITY VENOUS ULTRASOUND EXAM DATE: 11/08/2019 08:08 PM. CLINICAL HISTORY: PAIN IN LT LEG. COMPARISON: DUPLEX EXT VEINS LEFT 11/24/2015 7:18 PM. TECHNIQUE: Real-time sonographic vascular imaging was performed by the road oiling truck driver through the lower extremity utilizing both color-flow and Doppler spectral analysis. Multiple communications representative static images were saved for review. FINDINGS: Common Femoral Vein (CFV): Normal. CFV-GSV Junction: Normal. Profunda Femoral Vein (PFV): Normal. Femoral Vein (FV) Prox: Normal. Femoral Vein (FV) Mid: Normal. Femoral Vein (FV) Dist: Normal. Popliteal Vein: Normal. Posterior Tibial Veins: Normal. Peroneal Veins: Normal. Other: The mid and distal greater saphenous vein is thrombosed. The greater saphenous vein at the distal thigh is focally dilated measuring 3.9 x 1.4 x 1.9 cm. IMPRESSION: No evidence for acute left lower extremity deep venous thrombosis. Superficial venous thrombosis of the mid/distal left greater saphenous vein. The left greater saphenous vein at the distal thigh is focally dilated and thrombosed. RADIA The call report notification system was initiated by Dr. Evaristo Khalil at 09:48 PM on 11/08/2019. The above call report findings were discussed with Delmy Marques by Dr. Evaristo Khalil at 09:53 PM on 11/08/2019.
== END 2019-11-08 19:17 | disposition home or self-care (01) ==
LOC: DI 19:16
PROVIDERS: ATTEND Physician Assistant Medical
DX: I82.812 Embolism and thrombosis of superficial veins of left lower extremity (principal)

== ENCOUNTER 2019-11-30 08:52 | Outpatient (CLI) | payer MEDICARE, OTHER | END 2019-11-30 08:53 | disposition home or self-care (01) | LOC: DI 08:52 | PROVIDERS: ATTEND Physician Assistant Medical | DX: I35.1 Nonrheumatic aortic (valve) insufficiency (principal); I27.20 Pulmonary hypertension, unspecified; I31.3 Pericardial effusion (noninflammatory) | CPT/HCPCS: 93306 ==

== ENCOUNTER 2020-01-21 16:27 | Outpatient (CLI) | payer MEDICARE, OTHER | END 2020-01-21 16:28 | disposition critical access hospital (66) | LOC: EMS 16:27 | PROVIDERS: ATTEND Surgery | DX: R42 Dizziness and giddiness (principal) | CPT/HCPCS: A0425; A0429 ==

== ENCOUNTER 2020-01-21 16:45 | Emergency (ER) | payer MEDICARE, OTHER ==
[2020-01-21 17:07] LABS: BASOPHILS # (AUTO) 0.1 10^3/uL (0.0-0.1); BASOPHILS % (AUTO) 0.9 %; EOSINOPHILS # (AUTO) 0.1 10^3/uL (0.0-0.7); EOSINOPHILS % (AUTO) 1.7 %; HGB - HEMOGLOBIN 14.2 g/dL (12.0-16.0); LYMPHOCYTES # (AUTO) 2.2 10^3/uL (1.5-3.5); MEAN CORPUSCULAR HEMOGLOBIN 33.7 pg (27.0-31.0); MEAN CORPUSCULAR HGB CONC 34.1 g/dL (32.0-36.0); MEAN PLATELET VOLUME 10.3 fL (7.9-10.8); MONOCYTES # (AUTO) 0.8 10^3/uL (0.0-1.0); MONOCYTES % (AUTO) 10.2 %; NEUTROPHILS # (AUTO) 4.7 10^3/uL (1.5-6.6); NEUTROPHILS % (AUTO) 59.1 %; PLT - PLATELET COUNT 244 10^3/uL (130-450); RED BLOOD COUNT 4.21 10^6/uL (4.20-5.40); RED CELL DISTRIBUTION WIDTH 13.7 % (12.0-15.0); WHITE BLOOD COUNT 7.9 x10^3/uL (4.8-10.8)
[2020-01-21 17:30] LABS: ALBUMIN 4.2 g/dL (3.2-5.5); ALBUMIN/GLOBULIN RATIO 1.5 (1.0-2.2); BILIRUBIN,TOTAL 0.7 mg/dL (0.2-1.0); CALCIUM 9.5 mg/dL (8.5-10.3); CREATININE 0.9 mg/dL (0.4-1.0); MAGNESIUM 2.4 mg/dL (1.7-2.8)
--- NOTE | 2020-01-21 17:39 | ED Physician Documentation ---
History of Present Illness - Stated complaint Stated Complaint: DIZZY - Chief complaint Chief Complaint: Neuro - History obtained from History obtained from: Patient - History of Present Illness Timing: How many days ago (4) - Additonal information Additional information: 89-year-old female with a history of intermittent atrial fibrillation and some leaky valves has developed dizziness and lightheadedness. She has had these symptoms previously with dehydration and urinary tract infection. She was seen by her primary care doctor today who was concerned that she was in atrial fibrillation and asked her come to come to the emergency department for laboratory studies. Patient since has had improvement and states that she is currently asymptomatic. Review of Systems Constitutional: denies: Fever, Chills, Myalgias, Fatigue Eyes: denies: Decreased vision Ears: denies: Ear pain Nose: denies: Rhinorrhea / runny nose, Congestion Throat: denies: Sore throat Cardiac: denies: Chest pain / pressure, Palpitations, Pedal edema, Calf pain Respiratory: denies: Dyspnea, Cough, Wheezing GI: denies: Abdominal Pain, Nausea, Vomiting, Constipation, Diarrhea : reports: Frequency. 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 Cardiovascular: Vascular surgery HEENT: Cataracts - Present Medications Home Medications: Ambulatory Orders Medication Instructions Recorded Confirmed Aspirin 81 mg PO DAILY 07/10/19 01/21/20 Losartan [Cozaar] 50 mg PO DAILY 07/10/19 01/21/20 - Allergies Allergies/Adverse Reactions: Allergies Allergy/AdvReac Type Severity Reaction Status Date / Time levofloxacin [From Levaquin] AdvReac Severe Nausea, Verified 01/21/20 17:03 Vomiting, and weakness lovastatin AdvReac Severe Insomnia Verified 01/21/20 17:03 ciprofloxacin [From Cipro] AdvReac Intermediate Muscle Verified 01/21/20 17:03 stiffness and pain ciprofloxacin HCl * AdvReac Intermediate Muscle Verified 01/21/20 17:03 [From Cipro] stiffness and pain Bmzgbaw-Fny-Exe Reductase AdvReac Intermediate Insomnia Verified 01/21/20 17:03 Inhibitor - Social History Does the pt smoke?: No Smoking Status: Never smoker Does the pt drink ETOH?: Yes Does the pt have substance abuse?: No - Immunizations Immunizations are current?: Yes - POLST Patient has POLST: Yes PD ED PE NORMAL - Vitals Vital signs reviewed: Yes (Hypertensive) - General General: Alert and oriented X 3, No acute distress, Well developed/nourished - HEENT HEENT: Atraumatic, PERRL, EOMI - Neck Neck: Supple, no meningeal sign, No bony TTP - Cardiac Cardiac: Other (Irregularly irregular rate with) - Respiratory Respiratory: No respiratory distress ( out second sound.), Clear bilaterally - Abdomen Abdomen: Soft, Non tender - Back Back: No CVA TTP, No spinal TTP - Derm Derm: Normal color, Warm and dry, No rash - Extremities Extremities: No deformity, No edema - Neuro Neuro: Alert and oriented X 3, 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, No motor deficit, No sensory deficit, Normal speech Eye Opening: Spontaneous Motor: Obeys Commands Verbal: Oriented GCS Score: 15 - Psych Psych: Normal mood, Normal affect Results - Vitals Vitals: Vital Signs - 24 hr 01/21/20 01/21/20 01/21/20 16:45 18:00 19:08 Temperature 36.3 C L Heart Rate 92 81 77 Respiratory 15 16 19 Rate Blood Pressure 198/80 H 179/80 H 172/69 H O2 Saturation 98 97 97 01/21/20 01/21/20 01/21/20 20:02 20:32 21:01 Temperature 36.5 C Heart Rate 78 76 74 Respiratory 18 23 16 Rate Blood Pressure 188/93 H 194/73 H 147/57 H O2 Saturation 100 100 96 01/21/20 01/21/20 21:46 22:15 Temperature Heart Rate 69 71 Respiratory 16 20 Rate Blood Pressure 116/90 H 172/66 H O2 Saturation 96 96 Oxygen O2 Source Room air - EKG (time done) 1704 Rate: Rate (enter#) (72) Rhythm: Other (multiple PVC's) [place]: LAD Ischemia: Q waves Compare to prior EKG: Unchanged from prior EKG (SPT 04-15-2017 no sig change. ) Computer interpretation: Agree with computer - Labs Labs: Laboratory Tests 01/21/20 01/21/20 01/21/20 16:53 17:00 17:00 WBC 7.9 RBC 4.21 Hgb 14.2 Hct 41.7 MCV 99.0 MCH 33.7 H MCHC 34.1 RDW 13.7 Plt Count 244 MPV 10.3 Neut # (Auto) 4.7 Lymph # (Auto) 2.2 [place] # (Auto) 0.8 Eos # (Auto) 0.1 Baso # (Auto) 0.1 Absolute Nucleated RBC 0.00 Nucleated RBC % 0.0 Sodium 136 Potassium 3.7 Chloride 100 L Carbon Dioxide 26 Anion Gap 10.0 BUN 22 H Creatinine 0.9 Estimated GFR (MDRD) 59 L Glucose 109 H Calcium 9.5 Magnesium 2.4 Total Bilirubin 0.7 AST 22 ALT 18 Alkaline Phosphatase 53 Troponin I High Sens B-Natriuretic Peptide Total Protein 7.0 Albumin 4.2 Globulin 2.8 Albumin/Globulin Ratio 1.5 Lipase 43 Urine Color YELLOW Urine Clarity CLEAR Urine pH 6.5 Ur Specific [place] 1.010 Urine Protein NEGATIVE Urine Glucose (UA) NEGATIVE Urine Ketones NEGATIVE Urine Occult Blood NEGATIVE Urine Nitrite NEGATIVE Urine Bilirubin NEGATIVE Urine Urobilinogen 0.2 (NORMAL) Ur Leukocyte Esterase NEGATIVE Ur Microscopic Review NOT INDICATED Urine Culture Comments NOT INDICATED 01/21/20 01/21/20 01/21/20 17:00 17:00 19:02 WBC RBC Hgb Hct MCV MCH MCHC RDW Plt Count MPV Neut # (Auto) Lymph # (Auto) [place] # (Auto) Eos # (Auto) Baso # (Auto) Absolute Nucleated RBC Nucleated RBC % Sodium Potassium Chloride Carbon Dioxide Anion Gap BUN Creatinine Estimated GFR (MDRD) Glucose Calcium Magnesium Total Bilirubin AST ALT Alkaline Phosphatase Troponin I High Sens 16.8 H* 27.1 H* B-Natriuretic Peptide 203 H Total Protein Albumin Globulin Albumin/Globulin Ratio Lipase Urine Color Urine Clarity Urine pH Ur Specific [place] Urine Protein Urine Glucose (UA) Urine Ketones Urine Occult Blood Urine Nitrite Urine Bilirubin Urine Urobilinogen Ur Leukocyte Esterase Ur Microscopic Review Urine Culture Comments Procedures - IVC sono (time) 1732 Bedside IVC sono: IVC measures (cm) (1.7), Euvolemia PD MEDICAL DECISION MAKING - ED course Complexity details: reviewed old records, reviewed results, re-evaluated patient, considered differential, d/w patient ED course: 89 y/o female with dizziness and light headedness is not dehydrated on interrogation of the IVC, she is currently in sinus with a rate in the 80's. Her electrolytes and blood counts are normal. Her urinalysis is normal as well. She does have frequent PVC's which have been present previously. Her electrocardiogram is unchanged from prior. Her initial trop is elevated to 16.2 and a repeat is ordered. Her care is turned over to Dr. Chamberlain at shift change and her second trop came back at 27.1, exceeded the delta for time frame and arrangements were made by Dr. Chamberlain for transfer to [facility] in [place]. Departure - Departure Disposition: 02 Transfer Acute Care Hosp Clinical Impression: Dizziness, PVC's (premature ventricular contractions), NSTEMI (non-ST elevated myocardial infarction) Condition: Stable Instructions: ED Dizziness UKO, ED Palpitations Follow-Up: Delmy Marques PA-C [Primary Care Provider] - Discharge Date/Time: 01/21/20 22:35
[2020-01-21 17:57] LABS: BILIRUBIN,URINE NEGATIVE (NEGATIVE); GLUCOSE, URINE (UA) NEGATIVE (NEGATIVE); KETONES,URINE (UA) NEGATIVE (NEGATIVE); LEUKOCYTE ESTERASE, URINE NEGATIVE (NEGATIVE); NITRITE,URINE NEGATIVE (NEGATIVE); OCCULT BLOOD,URINE NEGATIVE (NEGATIVE); PH,URINE 6.5 PH (5.0-7.5); PROTEIN,URINE NEGATIVE (NEGATIVE); UROBILINOGEN,URINE 0.2 (NORMAL) E.U./dL (NORMAL)
[2020-01-21 17:58] LABS: CLARITY,URINE CLEAR (CLEAR)
[2020-01-21] MEDS ORDERED: ASPIRIN CHEW 81 MG TABLET PO STA (20:05)
[2020-01-21] MEDS ORDERED: METOPROLOL TARTRATE 50 MG TABLET PO STA (20:05)
[2020-01-21] MEDS ORDERED: ENOXAPARIN 60 MG/0.6 ML SYRINGE SUBQ STA (20:05)
--- NOTE | 2020-01-21 20:21 | ED Physician Documentation ---
ED Addendum - Addendum Addendum: 01/21/20 20:20 Patient signed out to me by Dr. Washburn, briefly this is a woman with atrial fibrillation with some nonspecific dizziness. Her EKG showed sinus rhythm with a lot of ectopy. At the time of signout her troponin was just a little elevated at 16.8 and the plan was to check in a second 1 and if there was no significant change she would be discharged. The second troponin at 2 hours was 27.1 which does sebas present a significant change and elevation of the troponin. Given the minor amounts, I recommended further trending the troponins here but she had a bad experience with this hospital and wanted to be transferred, but it does not seem unreasonable to send her somewhere to cardiology. [facility] called for transfer. She was administered subcutaneous Lovenox, aspirin orally and metoprolol orally. Statins were held given history of allergy to same. 01/21/20 20:21 Diagnosis #1 non-STEMI #2 dizziness 01/21/20 22:20 Late entry, accepted via [facility] to [facility] as she has rizo. Nara completed, stable for xfer. They requested CXR to make sure no covid pattern, done and no pna/covid pattern.
--- NOTE | 2020-01-21 21:33 | XRAY Report ---
Reason: dizzy, high trop Procedure Date: 01/21/2020 Accession Number: [id number] / [id number] Procedure: XR - Chest 1 View X-Ray CPT Code: 62609 Final Report FULL RESULT: EXAM: CHEST RADIOGRAPHY EXAM DATE: 01/21/2020 08:50 PM. CLINICAL HISTORY: Dizzy, high troponin. COMPARISON: Chest radiograph from 05/23/2018, 02/10/2017. TECHNIQUE: 1 view. FINDINGS: Lungs/Pleura: Lung volumes are large. No focal airspace opacity. There is chronic blunting of the left costophrenic sulcus, suggestive of pleural thickening. No right pleural effusion or pneumothorax. Mediastinum: Cardiac silhouette is at the upper limits of normal for size. Mediastinal contour is within normal limits. Atherosclerotic calcification of the aortic arch present. Pulmonary vasculature is unremarkable. Other: There is mild apex left curvature of the lower thoracic spine. Bones are demineralized. Surgical clips overlie the left axilla. IMPRESSION: 1. No acute cardiopulmonary abnormality. 2. Large lung volumes, which could represent underlying COPD. RADIA
[2020-01-21 22:16] VITALS: BP 172/66
== END 2020-01-21 22:35 | disposition short-term general hospital (02) ==
LOC: EDUNIT# → ED 16:45
DX: I21.4 Non-ST elevation (NSTEMI) myocardial infarction (principal)
CPT/HCPCS: 36415; 71045; 80053; 81003; 83690; 83735; 83880; 84484; 85025; 93005; 96372; 99285; A9270; J1650; 81001; 87086

== ENCOUNTER 2020-03-21 08:00 | Outpatient (CLI) | payer MEDICARE, OTHER ==
[2020-03-21 13:29] LABS: BASOPHILS # (AUTO) 0.1 10^3/uL (0.0-0.1); BASOPHILS % (AUTO) 0.8 %; EOSINOPHILS # (AUTO) 0.4 10^3/uL (0.0-0.7); EOSINOPHILS % (AUTO) 6.2 %; HGB - HEMOGLOBIN 13.4 g/dL (12.0-16.0); LYMPHOCYTES # (AUTO) 2.5 10^3/uL (1.5-3.5); LYMPHOCYTES % (AUTO) 42.4 %; MEAN CORPUSCULAR HEMOGLOBIN 32.1 pg (27.0-31.0); MEAN CORPUSCULAR HGB CONC 32.1 g/dL (32.0-36.0); MEAN CORPUSCULAR VOLUME 100.2 fL (81.0-99.0); MEAN PLATELET VOLUME 10.9 fL (7.9-10.8); MONOCYTES # (AUTO) 0.8 10^3/uL (0.0-1.0); MONOCYTES % (AUTO) 13.4 %; NEUTROPHILS # (AUTO) 2.2 10^3/uL (1.5-6.6); PLT - PLATELET COUNT 271 10^3/uL (130-450); RED BLOOD COUNT 4.17 10^6/uL (4.20-5.40); RED CELL DISTRIBUTION WIDTH 13.5 % (12.0-15.0)
[2020-03-21 14:04] LABS: ALBUMIN 3.7 g/dL (3.2-5.5); ALBUMIN/GLOBULIN RATIO 1.2 (1.0-2.2); ALKALINE PHOSPHATASE 58 IU/L (42-121); ALT ALANINE AMINOTRANSFERASE 18 IU/L (10-60); AST ASPARTATE AMINOTRANSFERASE 25 IU/L (10-42); BILIRUBIN,TOTAL 0.6 mg/dL (0.2-1.0); BUN - BLOOD UREA NITROGEN 18 mg/dL (6-20); CALCIUM 9.2 mg/dL (8.5-10.3); CARBON DIOXIDE - CO2 27 mmol/L (21-32); CHLORIDE 101 mmol/L (101-111); CHOL/HDL RATIO 2.6 (<4.4); CHOLESTEROL 199 mg/dL; CREATININE 0.7 mg/dL (0.4-1.0); GLUCOSE 99 mg/dL (70-100); HDL CHOLESTEROL 78 mg/dL; LDL CHOLESTEROL,CALCULATED 111 mg/dL; LDL/HDL RATIO 1.4 (<4.4); SODIUM 135 mmol/L (135-145); TOTAL PROTEIN 6.7 g/dL (6.7-8.2); VLDL CHOLESTEROL 10 mg/dL
== END 2020-03-21 23:59 | disposition home or self-care (01) ==
LOC: LAB.WCP 08:00
PROVIDERS: ATTEND Physician Assistant Medical
DX: E78.5 Hyperlipidemia, unspecified (principal); E03.9 Hypothyroidism, unspecified; R42 Dizziness and giddiness
CPT/HCPCS: 36415; 80053; 80061; 83721; 84443; 85025

== ENCOUNTER 2020-07-25 08:00 | Outpatient (CLI) | payer MEDICARE, OTHER | END 2020-07-25 23:59 | disposition home or self-care (01) | LOC: LAB.WCP 08:00 | PROVIDERS: ATTEND Physician Assistant | DX: Z53.9 Procedure and treatment not carried out, unspecified reason (principal) ==

== ENCOUNTER 2021-01-19 13:35 | Outpatient (CLI) | payer MEDICARE, OTHER | END 2021-01-19 13:36 | disposition EMS.NT | LOC: EMS 13:35 | DX: R07.9 Chest pain, unspecified (principal) ==

== ENCOUNTER 2021-03-09 08:00 | Outpatient (CLI) | payer MEDICARE, OTHER ==
[2021-03-09 12:17] LABS: BASOPHILS # (AUTO) 0.1 10^3/uL (0.0-0.1); BASOPHILS % (AUTO) 0.8 %; EOSINOPHILS # (AUTO) 0.4 10^3/uL (0.0-0.7); EOSINOPHILS % (AUTO) 5.9 %; HCT - HEMATOCRIT 44.5 % (37.0-47.0); HGB - HEMOGLOBIN 14.2 g/dL (12.0-16.0); LYMPHOCYTES # (AUTO) 2.6 10^3/uL (1.5-3.5); LYMPHOCYTES % (AUTO) 38.9 %; MEAN CORPUSCULAR HEMOGLOBIN 32.6 pg (27.0-31.0); MEAN CORPUSCULAR HGB CONC 31.9 g/dL (32.0-36.0); MEAN CORPUSCULAR VOLUME 102.3 fL (81.0-99.0); MEAN PLATELET VOLUME 10.6 fL (7.9-10.8); MONOCYTES # (AUTO) 0.7 10^3/uL (0.0-1.0); MONOCYTES % (AUTO) 9.8 %; NEUTROPHILS # (AUTO) 2.9 10^3/uL (1.5-6.6); NEUTROPHILS % (AUTO) 44.4 %; PLT - PLATELET COUNT 252 10^3/uL (130-450); RED BLOOD COUNT 4.35 10^6/uL (4.20-5.40); RED CELL DISTRIBUTION WIDTH 13.4 % (12.0-15.0); WHITE BLOOD COUNT 6.6 x10^3/uL (4.8-10.8)
[2021-03-09 12:48] LABS: THYROID STIMULATING HORMONE 2.15 uIU/mL (0.34-5.60)
[2021-03-09 12:50] LABS: ALBUMIN 3.8 g/dL (3.2-5.5); ALBUMIN/GLOBULIN RATIO 1.4 (1.0-2.2); ALKALINE PHOSPHATASE 57 IU/L (42-121); ALT ALANINE AMINOTRANSFERASE 14 IU/L (10-60); AST ASPARTATE AMINOTRANSFERASE 19 IU/L (10-42); BILIRUBIN,TOTAL 0.7 mg/dL (0.2-1.0); BUN - BLOOD UREA NITROGEN 23 mg/dL (6-20); CALCIUM 9.4 mg/dL (8.5-10.3); CARBON DIOXIDE - CO2 28 mmol/L (21-32); CHLORIDE 105 mmol/L (101-111); CHOL/HDL RATIO 3.5 (<4.4); CHOLESTEROL 242 mg/dL; CREATININE 0.8 mg/dL (0.4-1.0); GFR - MDRD 68 (>89); GLUCOSE 108 mg/dL (70-100); HDL CHOLESTEROL 70 mg/dL; LDL CHOLESTEROL,CALCULATED 158 mg/dL; LDL/HDL RATIO 2.3 (<4.4); POTASSIUM 4.2 mmol/L (3.5-5.0); SODIUM 141 mmol/L (135-145); TOTAL PROTEIN 6.6 g/dL (6.7-8.2); TRIGLYCERIDES 71 mg/dL; VLDL CHOLESTEROL 14 mg/dL
== END 2021-03-09 23:59 | disposition home or self-care (01) ==
LOC: LAB.WCP 08:00
PROVIDERS: ATTEND Physician Assistant Medical
DX: I21.4 Non-ST elevation (NSTEMI) myocardial infarction (principal); I48.91 Unspecified atrial fibrillation
CPT/HCPCS: 36415; 80053; 80061; 83721; 84443; 85025

== ENCOUNTER 2021-05-06 10:21 | Outpatient (CLI) | payer MEDICARE, OTHER ==
[2021-05-06 12:04] LABS: BASOPHILS % (AUTO) 0.6 %; EOSINOPHILS # (AUTO) 0.4 10^3/uL (0.0-0.7); EOSINOPHILS % (AUTO) 6.8 %; HCT - HEMATOCRIT 42.2 % (37.0-47.0); HGB - HEMOGLOBIN 13.6 g/dL (12.0-16.0); LYMPHOCYTES # (AUTO) 1.9 10^3/uL (1.5-3.5); LYMPHOCYTES % (AUTO) 30.6 %; MEAN CORPUSCULAR HEMOGLOBIN 32.9 pg (27.0-31.0); MEAN CORPUSCULAR HGB CONC 32.2 g/dL (32.0-36.0); MEAN CORPUSCULAR VOLUME 102.2 fL (81.0-99.0); MEAN PLATELET VOLUME 10.5 fL (7.9-10.8); MONOCYTES # (AUTO) 0.7 10^3/uL (0.0-1.0); MONOCYTES % (AUTO) 11.8 %; NEUTROPHILS # (AUTO) 3.1 10^3/uL (1.5-6.6); PLT - PLATELET COUNT 232 10^3/uL (130-450); RED BLOOD COUNT 4.13 10^6/uL (4.20-5.40); RED CELL DISTRIBUTION WIDTH 13.2 % (12.0-15.0); WHITE BLOOD COUNT 6.3 x10^3/uL (4.8-10.8)
[2021-05-06 12:12] LABS: ALBUMIN/GLOBULIN RATIO 1.4 (1.0-2.2); BILIRUBIN,TOTAL 0.5 mg/dL (0.2-1.0); CALCIUM 9.7 mg/dL (8.5-10.3); CREATININE 0.8 mg/dL (0.4-1.0); POTASSIUM 4.1 mmol/L (3.5-5.0); TOTAL PROTEIN 6.9 g/dL (6.7-8.2)
== END 2021-05-06 10:22 | disposition home or self-care (01) ==
LOC: LAB.N 10:21
PROVIDERS: ATTEND Physician Assistant Medical
DX: R06.09 Other forms of dyspnea (principal)
CPT/HCPCS: 36415; 80053; 83880; 85025

== ENCOUNTER 2021-05-06 10:30 | Outpatient (CLI) | payer MEDICARE, OTHER ==
--- NOTE | 2021-05-06 18:06 | XRAY Report ---
PROCEDURE: Chest 2 View X-Ray INDICATIONS: DYSPNEA ON EXERTION TECHNIQUE: 2 view(s) of the chest. COMPARISON: X-ray chest 01/21/2020 FINDINGS: Surgical changes and devices: Pacemaker and axillary clips. Lungs and pleura: Lungs are hyperexpanded. There is blunting of the left costophrenic angle, unchange d. Mediastinum: Mediastinal contours are normal. Heart size is normal. Bones and chest wall: No suspicious bony abnormalities. Soft tissues appear unremarkable. IMPRESSION: No acute pulmonary process. Suspected left costophrenic angle scarring. Reviewed by: Samantha Manzo MD on 05/06/2021 6:04 PM PDT Approved by: Samantha Manzo MD on 05/06/2021 6:04 PM PDT Station ID: [id number]
== END 2021-05-06 10:31 | disposition home or self-care (01) ==
LOC: DI.N 10:30
PROVIDERS: ATTEND Physician Assistant Medical
DX: R06.09 Other forms of dyspnea (principal)
CPT/HCPCS: 36415; 80053; 83880; 85025

== ENCOUNTER 2021-05-22 16:30 | Outpatient (CLI) | payer MEDICARE, OTHER | END 2021-05-22 23:59 | disposition home or self-care (01) | LOC: LAB.WCP 16:30 | PROVIDERS: ATTEND Physician Assistant Medical | DX: S20.319A Abrasion of unspecified front wall of thorax, initial encounter (principal); L08.9 Local infection of the skin and subcutaneous tissue, unspecified | CPT/HCPCS: 87070; 87205 ==

== ENCOUNTER 2021-07-22 08:00 | Outpatient (CLI) | payer MEDICARE, OTHER | END 2021-07-22 23:59 | disposition home or self-care (01) | LOC: LAB.WCP 08:00 | PROVIDERS: ATTEND Internal Medicine Cardiovascular Disease | DX: R06.02 Shortness of breath (principal); I48.0 Paroxysmal atrial fibrillation | CPT/HCPCS: 36415; 83735; 84443 ==

== ENCOUNTER 2021-07-28 13:31 | Outpatient (CLI) | payer MEDICARE, OTHER | END 2021-07-28 13:32 | disposition home or self-care (01) | LOC: RT 13:31 | PROVIDERS: ATTEND Physician Assistant Medical | DX: R06.09 Other forms of dyspnea (principal) | CPT/HCPCS: 94010 ==